=== PATIENT | male | born 1965 | race Caucasian/White ===

== ENCOUNTER 2020-08-15 21:14 | Inpatient (IN) | payer OTHER ==
[~2020-08-15] VITALS: Ht 175.3 cm; Wt 117.0 kg
[~2020-08-15 21:14] MED LIST: TAMIFLU75 MG PO
[2020-08-15] MEDS ORDERED: ONDANSETRON HCL INJ 2MG/ML 2ML 2 MG/ML VIAL IV STA (21:49)
[2020-08-15] MEDS ORDERED: KETOROLAC TROMETHAMINE 30 MG/ML VIAL IV STA (21:49)
[2020-08-15] MEDS ORDERED: SODIUM CHLORIDE 0.9% 1000ML 1,000 ML IV SCH (22:00)
[2020-08-15] MEDS ORDERED: SODIUM CHLORIDE 0.9% 1000ML 1,000 ML ONE (22:19)
[2020-08-15] MEDS ORDERED: ONDANSETRON HCL INJ 2MG/ML 2ML 2 MG/ML VIAL ONE (22:19)
[2020-08-15] MEDS ORDERED: KETOROLAC TROMETHAMINE 30 MG/ML VIAL ONE (22:19)
[2020-08-16] MEDS ORDERED: IOPAMIDOL 370 MG/ML 200 ML INFUS..BTL INJ ONE (00:05)
[2020-08-16] MEDS ORDERED: SODIUM CHLORIDE 0.9% 50ML 50 ML ONE (00:05)
[2020-08-16] MEDS ORDERED: LEVOFLOXACIN 750MG/D5W 150ML 150 ML IV ONE ×2 (00:15→00:19)
[2020-08-16] MEDS ORDERED: METRONIDAZOLE 500MG/NS 100ML 100 ML IV ONE ×2 (00:15→00:19)
[2020-08-16] MEDS ORDERED: SODIUM CHLORIDE 0.9% 250ML IRRIG IR SCH (04:45)
[2020-08-16] MEDS ORDERED: LEVOFLOXACIN 750MG/D5W 150ML 150 ML IV SCH (05:15)
[2020-08-16] MEDS: SODIUM CHLORIDE 0.9% 1000ML 1,000 ML IV SCH ×5 (05:43→20:30)
[2020-08-16] MEDS: METRONIDAZOLE 500MG/NS 100ML 100 ML IV SCH ×3 (08:20→20:18)
[2020-08-16 13:10] VITALS: BP 128/90
[2020-08-16 13:11] VITALS: BP 128/90
[2020-08-16 13:17] VITALS: BP 128/90
[2020-08-16] MEDS: ONDANSETRON HCL INJ 2MG/ML 2ML 2 MG/ML VIAL IV PRN ×2 (13:30→20:18)
[2020-08-16 15:01] VITALS: BP 136/93
[2020-08-16] MEDS: MORPHINE SULFATE INJ 4 MG/ML INJ 1ML IV PRN ×2 (16:47→20:51)
[2020-08-16 20:00] VITALS: BP 129/84
[2020-08-16] MEDS: BISACODYL 10 MG SUPP PR SCH (20:18)
[2020-08-16 20:19] VITALS: BP 129/84
[2020-08-16] MEDS ORDERED: BISACODYL 10 MG SUPP PR SCH (21:00)
[2020-08-17] VITALS (8 sets, daily range): BP systolic 105–137; BP diastolic 69–94
[2020-08-17] MEDS: LEVOFLOXACIN 750MG/D5W 150ML 150 ML IV SCH ×2 (00:46→23:51)
[2020-08-17] MEDS: MORPHINE SULFATE INJ 4 MG/ML INJ 1ML IV PRN ×4 (00:57→23:57)
[2020-08-17] MEDS: SODIUM CHLORIDE 0.9% 1000ML 1,000 ML IV SCH (05:20)
[2020-08-17] MEDS: METRONIDAZOLE 500MG/NS 100ML 100 ML IV SCH ×3 (05:20→20:07)
[2020-08-17] MEDS: BISACODYL 10 MG SUPP PR SCH (08:21)
[2020-08-17 08:30] LABS: BASOPHILS % 0.4 % (0.0-1.0); EOSINOPHILS % 0.2 % (0.0-6.0); HEMATOCRIT 45.5 % (38.2-49.6); HEMOGLOBIN 15.3 g/dL (14.0-18.0); LYMPHOCYTES # (AUTO) 0.7 (1.0-3.2); LYMPHOCYTES % 14.5 % (18.0-39.1); MEAN CORPUSCULAR HEMOGLOBIN 26.7 pg (28-32); MEAN CORPUSCULAR HGB CONC 33.6 g/dL (31-35); MEAN CORPUSCULAR VOLUME 79.5 fL (81-99); MONOCYTES # (AUTO) 1.1 (0.2-0.8); MONOCYTES % 23.1 % (4.4-11.3); NEUTROPHILS # (AUTO) 2.9 (2.1-6.9); NEUTROPHILS % 61.2 % (38.7-80.0); PLATELET COUNT 216 x10e3/uL (140-360); RED BLOOD COUNT 5.72 x10e6/uL (4.3-5.7); RED CELL DISTRIBUTION WIDTH 15.2 % (11.7-14.4)
[2020-08-17 08:52] LABS: ALANINE AMINOTRANSFERASE 12 IU/L (0-55); ALBUMIN 3.3 g/dL (3.5-5.0); ALBUMIN/GLOBULIN RATIO 0.8 (0.8-2.0); ALKALINE PHOSPHATASE 58 IU/L (40-150); ANION GAP 19.4 mmol/L (8-16); BLOOD UREA NITROGEN 21 mg/dL (7-26); BUN/CREATININE RATIO 23 (6-25); CALCIUM 8.8 mg/dL (8.4-10.2); CARBON DIOXIDE 22 mmol/L (22-29); CHLORIDE 100 mmol/L (98-107); CREATININE, SERUM 0.93 mg/dL (0.72-1.25); EST GLOMERULAR FILTRATION RATE > 60 ML/MIN (60-); GLUCOSE 130 mg/dL (74-118); POTASSIUM 3.4 mmol/L (3.5-5.1); SODIUM 138 mmol/L (136-145)
[2020-08-17] MEDS ORDERED: POTASSIUM CHLORIDE 20MEQ/100ML 100 ML IV ONE (11:30)
[2020-08-17] MEDS ORDERED: CRESTOR10 MG PO (13:49)
[2020-08-17] MEDS ORDERED: LOSARTAN POTAS100 MG PO (13:49)
[2020-08-17] MEDS: SODIUM CHLORIDE 0.9% 250ML IRRIG IR SCH ×3 (14:54→22:10)
[2020-08-17] MEDS: KCL 20MEQ/.9 SOD CHL 1,000 ML IV SCH ×2 (18:09→20:05)
[2020-08-17] MEDS: ONDANSETRON HCL INJ 2MG/ML 2ML 2 MG/ML VIAL IV PRN (22:10)
[2020-08-18] VITALS (7 sets, daily range): BP systolic 119–145; BP diastolic 78–88
[2020-08-18] MEDS: SODIUM CHLORIDE 0.9% 250ML IRRIG IR SCH ×6 (02:00→20:45)
[2020-08-18] MEDS: KCL 20MEQ/.9 SOD CHL 1,000 ML IV SCH ×2 (04:10→13:32)
[2020-08-18] MEDS: METRONIDAZOLE 500MG/NS 100ML 100 ML IV SCH ×3 (05:21→20:45)
[2020-08-18 10:32] LABS: BASOPHILS % 0.4 % (0.0-1.0); EOSINOPHILS % 0.5 % (0.0-6.0); HEMATOCRIT 42.4 % (38.2-49.6); HEMOGLOBIN 14.2 g/dL (14.0-18.0); LYMPHOCYTES # (AUTO) 0.7 (1.0-3.2); LYMPHOCYTES % 12.5 % (18.0-39.1); MEAN CORPUSCULAR HEMOGLOBIN 27.2 pg (28-32); MEAN CORPUSCULAR HGB CONC 33.5 g/dL (31-35); MEAN CORPUSCULAR VOLUME 81.1 fL (81-99); MONOCYTES # (AUTO) 1.3 (0.2-0.8); MONOCYTES % 23.8 % (4.4-11.3); NEUTROPHILS # (AUTO) 3.4 (2.1-6.9); NEUTROPHILS % 61.9 % (38.7-80.0); PLATELET COUNT 175 x10e3/uL (140-360); RED BLOOD COUNT 5.23 x10e6/uL (4.3-5.7); RED CELL DISTRIBUTION WIDTH 15.3 % (11.7-14.4)
[2020-08-18 11:14] LABS: ANION GAP 16.7 mmol/L (8-16); BLOOD UREA NITROGEN 22 mg/dL (7-26); BUN/CREATININE RATIO 24 (6-25); CALCIUM 8.5 mg/dL (8.4-10.2); CARBON DIOXIDE 27 mmol/L (22-29); CHLORIDE 102 mmol/L (98-107); CREATININE, SERUM 0.93 mg/dL (0.72-1.25); EST GLOMERULAR FILTRATION RATE > 60 ML/MIN (60-); GLUCOSE 106 mg/dL (74-118); POTASSIUM 3.7 mmol/L (3.5-5.1); SODIUM 142 mmol/L (136-145)
[2020-08-18] MEDS: ONDANSETRON HCL INJ 2MG/ML 2ML 2 MG/ML VIAL IV PRN (12:45)
[2020-08-18 13:29] LABS: BAND NEUTROPHILS % (MANUAL) 4 %; EOSINOPHILS % (MANUAL) 1 % (0-7); LYMPHOCYTES % (MANUAL) 26 % (19-48); MONOCYTES % (MANUAL) 16 % (3.4-9.0); NEUTROPHILS % (MANUAL) 52 % (40-74); RBC MORPHOLOGY COMMENT NORMAL
[2020-08-18 13:30] LABS: PLATELET ESTIMATE ADEQUATE; PLATELET MORPHOLOGY COMMENT NORMAL
[2020-08-18] MEDS: MORPHINE SULFATE INJ 4 MG/ML INJ 1ML IV PRN (13:31)
[2020-08-18] MEDS: PANTOPRAZOLE 40 MG 10ML VIAL IV SCH (20:45)
[2020-08-19] VITALS (7 sets, daily range): BP systolic 121–143; BP diastolic 82–97
[2020-08-19] MEDS: LEVOFLOXACIN 750MG/D5W 150ML 150 ML IV SCH (00:26)
[2020-08-19] MEDS: KCL 20MEQ/.9 SOD CHL 1,000 ML IV SCH ×4 (00:26→18:22)
[2020-08-19] MEDS: SODIUM CHLORIDE 0.9% 250ML IRRIG IR SCH ×6 (02:57→21:01)
[2020-08-19] MEDS: METRONIDAZOLE 500MG/NS 100ML 100 ML IV SCH ×3 (06:00→21:42)
[2020-08-19] MEDS: PANTOPRAZOLE 40 MG 10ML VIAL IV SCH (08:46)
[2020-08-19] MEDS: BISACODYL 10 MG SUPP PR SCH (21:42)
[2020-08-20] VITALS (9 sets, daily range): BP systolic 119–156; BP diastolic 61–99
[2020-08-20] MEDS: LEVOFLOXACIN 750MG/D5W 150ML 150 ML IV SCH ×2 (01:54→23:12)
[2020-08-20] MEDS: SODIUM CHLORIDE 0.9% 250ML IRRIG IR SCH ×6 (01:54→22:14)
[2020-08-20] MEDS: KCL 20MEQ/.9 SOD CHL 1,000 ML IV SCH ×3 (03:40→21:02)
[2020-08-20] MEDS: METRONIDAZOLE 500MG/NS 100ML 100 ML IV SCH ×3 (05:33→22:14)
[2020-08-20 05:57] LABS: BASOPHILS % 0.4 % (0.0-1.0); EOSINOPHILS # (AUTO) 0.1 (0.0-0.4); EOSINOPHILS % 1.3 % (0.0-6.0); HEMATOCRIT 41.2 % (38.2-49.6); HEMOGLOBIN 13.6 g/dL (14.0-18.0); LYMPHOCYTES # (AUTO) 1.1 (1.0-3.2); LYMPHOCYTES % 15.8 % (18.0-39.1); MEAN CORPUSCULAR HEMOGLOBIN 27.1 pg (28-32); MEAN CORPUSCULAR VOLUME 82.2 fL (81-99); MONOCYTES % 14.5 % (4.4-11.3); NEUTROPHILS # (AUTO) 4.3 (2.1-6.9); NEUTROPHILS % 64.4 % (38.7-80.0); PLATELET COUNT 187 x10e3/uL (140-360); RED BLOOD COUNT 5.01 x10e6/uL (4.3-5.7); RED CELL DISTRIBUTION WIDTH 15.6 % (11.7-14.4)
[2020-08-20 06:19] LABS: ALANINE AMINOTRANSFERASE 9 IU/L (0-55); ALBUMIN 2.5 g/dL (3.5-5.0); ALBUMIN/GLOBULIN RATIO 0.8 (0.8-2.0); ALKALINE PHOSPHATASE 52 IU/L (40-150); ANION GAP 15.7 mmol/L (8-16); BLOOD UREA NITROGEN 13 mg/dL (7-26); BUN/CREATININE RATIO 16 (6-25); CARBON DIOXIDE 22 mmol/L (22-29); CHLORIDE 108 mmol/L (98-107); EST GLOMERULAR FILTRATION RATE > 60 ML/MIN (60-); GLUCOSE 99 mg/dL (74-118); POTASSIUM 3.7 mmol/L (3.5-5.1); SODIUM 142 mmol/L (136-145)
[2020-08-20] MEDS ORDERED: HYDRALAZINE HCL 20 MG/ML VIAL IV PRN (08:15)
[2020-08-20] MEDS: BISACODYL 10 MG SUPP PR SCH ×2 (09:49→21:02)
[2020-08-20] MEDS: PANTOPRAZOLE 40 MG 10ML VIAL IV SCH (09:49)
[2020-08-20] MEDS ORDERED: LORATADINE 10 MG TAB PO ONE (15:45)
[2020-08-20] MEDS: TRIAMCINOLONE ACET 0.1% CREAM 15 GM TUBE TOP SCH (21:03)
[2020-08-21] VITALS: BP 142/90
[2020-08-21] MEDS: SODIUM CHLORIDE 0.9% 250ML IRRIG IR SCH ×6 (02:51→21:19)
[2020-08-21 04:00] VITALS: BP 145/84
[2020-08-21] MEDS: METRONIDAZOLE 500MG/NS 100ML 100 ML IV SCH ×3 (05:33→21:19)
[2020-08-21] MEDS: KCL 20MEQ/.9 SOD CHL 1,000 ML IV SCH ×2 (05:33→14:18)
[2020-08-21 08:00] VITALS: BP_SYST 133; BP_SYST 141; BP_DIAS 76; BP_DIAS 95
[2020-08-21] MEDS: PANTOPRAZOLE 40 MG 10ML VIAL IV SCH (08:45)
[2020-08-21] MEDS: LORATADINE 10 MG TAB PO SCH (08:45)
[2020-08-21] MEDS: BISACODYL 10 MG SUPP PR SCH (08:45)
[2020-08-21] MEDS: TRIAMCINOLONE ACET 0.1% CREAM 15 GM TUBE TOP SCH ×3 (09:00→21:19)
[2020-08-21 11:47] VITALS: BP 159/96
[2020-08-21 16:00] VITALS: BP 151/92
[2020-08-21 20:00] VITALS: BP_SYST 142; BP_SYST 157; BP_DIAS 100; BP_DIAS 94
[2020-08-22] VITALS (7 sets, daily range): BP systolic 131–152; BP diastolic 82–98
[2020-08-22] MEDS: LEVOFLOXACIN 750MG/D5W 150ML 150 ML IV SCH (00:37)
[2020-08-22] MEDS: SODIUM CHLORIDE 0.9% 250ML IRRIG IR SCH ×6 (02:09→22:40)
[2020-08-22] MEDS: KCL 20MEQ/.9 SOD CHL 1,000 ML IV SCH ×4 (02:36→21:20)
[2020-08-22 05:16] LABS: BASOPHILS # (AUTO) 0.1 (0.0-0.1); BASOPHILS % 0.7 % (0.0-1.0); EOSINOPHILS # (AUTO) 0.1 (0.0-0.4); EOSINOPHILS % 1.7 % (0.0-6.0); HEMATOCRIT 41.6 % (38.2-49.6); LYMPHOCYTES # (AUTO) 1.2 (1.0-3.2); LYMPHOCYTES % 16.2 % (18.0-39.1); MEAN CORPUSCULAR HEMOGLOBIN 27.1 pg (28-32); MEAN CORPUSCULAR HGB CONC 33.7 g/dL (31-35); MEAN CORPUSCULAR VOLUME 80.6 fL (81-99); MONOCYTES # (AUTO) 1.2 (0.2-0.8); MONOCYTES % 16.3 % (4.4-11.3); NEUTROPHILS # (AUTO) 4.5 (2.1-6.9); NEUTROPHILS % 59.9 % (38.7-80.0); PLATELET COUNT 206 x10e3/uL (140-360); RED BLOOD COUNT 5.16 x10e6/uL (4.3-5.7); RED CELL DISTRIBUTION WIDTH 15.5 % (11.7-14.4)
[2020-08-22 05:46] LABS: ALANINE AMINOTRANSFERASE 13 IU/L (0-55); ALBUMIN 2.7 g/dL (3.5-5.0); ALBUMIN/GLOBULIN RATIO 0.9 (0.8-2.0); ALKALINE PHOSPHATASE 44 IU/L (40-150); ANION GAP 15.8 mmol/L (8-16); BLOOD UREA NITROGEN 8 mg/dL (7-26); BUN/CREATININE RATIO 11 (6-25); CALCIUM 7.9 mg/dL (8.4-10.2); CARBON DIOXIDE 19 mmol/L (22-29); CHLORIDE 108 mmol/L (98-107); CREATININE, SERUM 0.72 mg/dL (0.72-1.25); EST GLOMERULAR FILTRATION RATE > 60 ML/MIN (60-); GLUCOSE 77 mg/dL (74-118); POTASSIUM 3.8 mmol/L (3.5-5.1); SODIUM 139 mmol/L (136-145)
[2020-08-22] MEDS: METRONIDAZOLE 500MG/NS 100ML 100 ML IV SCH ×3 (06:24→22:55)
[2020-08-22] MEDS ORDERED: BISACODYL 10 MG SUPP PR ONE (09:00)
[2020-08-22] MEDS: TRIAMCINOLONE ACET 0.1% CREAM 15 GM TUBE TOP SCH ×3 (09:16→21:00)
[2020-08-22] MEDS: LORATADINE 10 MG TAB PO SCH (09:16)
[2020-08-22] MEDS: PANTOPRAZOLE 40 MG 10ML VIAL IV SCH (09:16)
[2020-08-22] MEDS: BISACODYL 10 MG SUPP PR SCH (22:40)
[2020-08-23] VITALS (7 sets, daily range): BP systolic 118–150; BP diastolic 79–97
[2020-08-23] MEDS: LEVOFLOXACIN 750MG/D5W 150ML 150 ML IV SCH (01:00)
[2020-08-23] MEDS: SODIUM CHLORIDE 0.9% 250ML IRRIG IR SCH ×2 (02:12→06:00)
[2020-08-23] MEDS: KCL 20MEQ/.9 SOD CHL 1,000 ML IV SCH ×3 (05:33→19:51)
[2020-08-23] MEDS: METRONIDAZOLE 500MG/NS 100ML 100 ML IV SCH ×3 (06:00→22:00)
[2020-08-23] MEDS: BISACODYL 10 MG SUPP PR SCH (09:00)
[2020-08-23] MEDS: TRIAMCINOLONE ACET 0.1% CREAM 15 GM TUBE TOP SCH ×3 (09:00→21:00)
[2020-08-23] MEDS: LORATADINE 10 MG TAB PO SCH (09:00)
[2020-08-23] MEDS: PANTOPRAZOLE 40 MG 10ML VIAL IV SCH (15:43)
[2020-08-24] VITALS (8 sets, daily range): BP systolic 112–137; BP diastolic 69–92
[2020-08-24] MEDS: LEVOFLOXACIN 750MG/D5W 150ML 150 ML IV SCH (00:07)
[2020-08-24] MEDS: KCL 20MEQ/.9 SOD CHL 1,000 ML IV SCH (05:40)
[2020-08-24] MEDS: METRONIDAZOLE 500MG/NS 100ML 100 ML IV SCH ×3 (06:00→21:25)
[2020-08-24] MEDS: LORATADINE 10 MG TAB PO SCH (08:37)
[2020-08-24] MEDS: PANTOPRAZOLE 40 MG 10ML VIAL IV SCH (08:37)
[2020-08-24] MEDS: TRIAMCINOLONE ACET 0.1% CREAM 15 GM TUBE TOP SCH ×3 (15:00→21:00)
[2020-08-24] MEDS ORDERED: FLAGYL500 MG PO (15:11)
[2020-08-24] MEDS ORDERED: LEVOFLOXACIN250 MG PO (15:11)
[2020-08-25] VITALS: BP 109/65
[2020-08-25] MEDS: LEVOFLOXACIN 750MG/D5W 150ML 150 ML IV SCH (00:01)
[2020-08-25 04:00] VITALS: BP 107/83
[2020-08-25] MEDS: METRONIDAZOLE 500MG/NS 100ML 100 ML IV SCH (05:30)
[2020-08-25 06:50] LABS: BASOPHILS # (AUTO) 0.1 (0.0-0.1); BASOPHILS % 0.7 % (0.0-1.0); EOSINOPHILS # (AUTO) 0.1 (0.0-0.4); EOSINOPHILS % 1.4 % (0.0-6.0); HEMATOCRIT 44.5 % (38.2-49.6); HEMOGLOBIN 15.2 g/dL (14.0-18.0); LYMPHOCYTES # (AUTO) 1.2 (1.0-3.2); LYMPHOCYTES % 17.3 % (18.0-39.1); MEAN CORPUSCULAR HGB CONC 34.2 g/dL (31-35); MEAN CORPUSCULAR VOLUME 79.2 fL (81-99); MONOCYTES # (AUTO) 0.9 (0.2-0.8); MONOCYTES % 12.1 % (4.4-11.3); NEUTROPHILS # (AUTO) 4.7 (2.1-6.9); NEUTROPHILS % 66.7 % (38.7-80.0); PLATELET COUNT 237 x10e3/uL (140-360); RED BLOOD COUNT 5.62 x10e6/uL (4.3-5.7); RED CELL DISTRIBUTION WIDTH 16.3 % (11.7-14.4)
[2020-08-25 07:16] LABS: ALANINE AMINOTRANSFERASE 20 IU/L (0-55); ALBUMIN 2.9 g/dL (3.5-5.0); ALBUMIN/GLOBULIN RATIO 0.8 (0.8-2.0); ALKALINE PHOSPHATASE 43 IU/L (40-150); BLOOD UREA NITROGEN 6 mg/dL (7-26); BUN/CREATININE RATIO 8 (6-25); CALCIUM 8.7 mg/dL (8.4-10.2); CARBON DIOXIDE 19 mmol/L (22-29); CHLORIDE 105 mmol/L (98-107); CREATININE, SERUM 0.73 mg/dL (0.72-1.25); EST GLOMERULAR FILTRATION RATE > 60 ML/MIN (60-); GLUCOSE 99 mg/dL (74-118); SODIUM 135 mmol/L (136-145)
[2020-08-25 07:20] VITALS: BP 110/84
[2020-08-25] MEDS ORDERED: PANTOPRAZOLE SOD 40 MG TABEC PO SCH (07:30)
[2020-08-25] MEDS: LORATADINE 10 MG TAB PO SCH (09:55)
[2020-08-25] MEDS: TRIAMCINOLONE ACET 0.1% CREAM 15 GM TUBE TOP SCH (09:55)
== END 2020-08-25 09:54 | disposition home or self-care (01) | DRG 388 ==
LOC: FSED 21:49 → ERHOLD 08-16 05:11 → MED/SURG 08-16 12:31
PROVIDERS: ADMIT Internal Medicine; ATTEND Internal Medicine
DX: K56.600 Partial intestinal obstruction, unspecified as to cause (principal); J18.9 Pneumonia, unspecified organism; K57.32 Diverticulitis of large intestine without perforation or abscess without bleeding; E86.0 Dehydration; E86.1 Hypovolemia; E66.9 Obesity, unspecified; Z68.38 Body mass index [BMI] 38.0-38.9, adult; Z20.822 Contact with and (suspected) exposure to COVID-19; I11.9 Hypertensive heart disease without heart failure
CPT/HCPCS: 36415; 71046; 74018; 74019; 74022; 74177; 80048; 80053; 80076; 81003; 83735; 85025; 99284; J1885; J2270; J2405; J3480; J7030; Q9967; U0002